=== PATIENT | male | born 1990 | race Caucasian/White ===

== ENCOUNTER 2016-12-24 20:08 | Emergency (ER) | payer SELFPAY ==
[~2016-12-24] VITALS: Ht 185.4 cm; Wt 131.9 kg
[2016-12-24] MEDS ORDERED: MOTRIN800 MG PO (21:12)
[2016-12-24] MEDS ORDERED: PERCOCET 5/31 TABLET PO (21:12)
[2016-12-24 21:53] VITALS: BP 145/89
== END 2016-12-24 21:53 | disposition home or self-care (01) ==
LOC: EME 20:08
PROC: 2W3QX1Z Immobilization of Right Lower Leg using Splint (ICD-10-PCS; principal; 2016-12-24)
DX: S93.401A Sprain of unspecified ligament of right ankle, initial encounter (principal); W10.9XXA Fall (on) (from) unspecified stairs and steps, initial encounter; F84.0 Autistic disorder
CPT/HCPCS: 73610; 99281; 99284